=== PATIENT | female | born 1985 | race Two or more races ===

== ENCOUNTER 2025-06-12 11:56 | Outpatient (REF) | payer SELFPAY ==
--- OUTSIDE RECORDS SUMMARY | 2025-06-12 10:30 | XMS_ITS | Encounter Summary ---
Author Organization [employer] Address [address] [place] [address] [address] [place] [address] Care Team Providers Care Lead Software Qa Engineer Name Role Phone Mariela Villarreal Primary Care Provider [phone] Reason for Referral * Imaging (Routine) - Authorized Specialty Diagnoses / Procedures Referred By Justina alvarenga Referred To Contact Radiology Diagnoses Well adult exam Procedures BI Mammogram Screening Tomosynthesis Bilateral Mariela Villarreal FNP [address] [place] [address] Phone: tel: fax: [address] Phone: tel: fax: Referral ID Status Reason Start Date Expiration Date V isits Requested Visits Authorized [id number] Authorized 06/12/2025 06/12/2026 1 1 * PFT (Routine) - Authorized Specialty Diagnoses / Procedures Referred By Justina alvarenga Referred To Contact Diagnoses Moderate persistent asthma without complication Procedures Pulmonary Function Test Mariela Villarreal FNP [address] [place] [address] Phone: tel: fax: [address] Phone: tel: fax: Referral ID Status Reason Start Date Expiration Date V isits Requested Visits Authorized [id number] Authorized 06/12/2025 06/12/2026 1 1 * Consultation (Routine) - Pending Review Specialty Diagnoses / Procedures Referred By Justina alvarenga Referred To Contact Pulmonary Disease Diagnoses Moderate persistent asthma without complication Mariela Villarreal FNP [address] [place] [address] Phone: tel: fax: Referral ID Status Reason Start Date Expiration Date Visits Requested Visits Authorized [id number] Pending Review Specialty Services Required 06/12/2026 1 1 Reason for Visit * Reason Comments New patient Encounter Details Date Type Department Care Team ([facility] st Contact Info) Description 06/12/2025 10:30 AM EST Office Visit [facility] [address] [place] [address] Mariela Villarreal FNP [address] [place] [address] Well adult exam (Primary Dx); Moderate persistent asthma without complication; Migraine without aura and without status migrainosus, not intractable; Elevated BP without diagnosis of hypertension; Seafood allergy; Anxiety and depression; Class 1 obesity Social History Tobacco Use Types Packs/Day Years Used Date Smoking Tobacco: Former Cigarettes 0.2 18.8 0 08/02/2000 - 06/02/2019 Smokeless Tobacco: Never Depression Answer Date Recorded Patient Health Questionnaire-9 Score 5 06/12/2025 Patient Health Questionnaire-9 Score 5 06/12/2025 Last PHQ-9: Questionnaire Data Not on file 1 08/12/2024 Housing Stability Answer Date Recorded What is your housing situation today? I have jorge muhammad 06/05/[address] you li ve. Do you have problems with any of the following? None of the above 06/05/2025 Food Insecurity Answer Date Recorded Within the past 12 months, y ou worried that your food would run out before you got money to buy more: Never True 06/05/2025 Within the past 12 months,th e food you bought just didn't last and you didn't have enough money to get more: Never True 10/2024 Transportation Answer Date Recorded In the past 12 months, has l ack of transportation kept you from medical appts, meetings, work or from getting things needed for daily living? No 06/05/2025 Utilities Answer Date Recorded In the past 12 months, has t he electric, gas, oil or water company threatened to shut off services in your home? No 06/05/2025 Depression Answer Date Recorded Patient Health Questionnaire-2 Score 2 06/12/2025 Internet Access Answer Date Recorded Internet Access Q1 Yes 06/05/2025 Internet Access Q2 Not on file 06/05/2025 Comments Unknown Sex and Gender Information Value Date Recorded Sex Assigned at Female 03/16/2024 9:19 AM EDT Legal Sex Female 10:26 AM EDT Gender Identity Female 03/16/2024 9:19 AM EDT Sexual Orientation Straight 03/16/2024 9: 19 AM EDT documented as of this encounter Last Filed Vital Signs Vital Sign Reading Time Taken Comments Blood Pressure 130/90 06/12/2025 10:21 AM EST Pulse 97 06/12/2025 10:21 AM EST Temperature 36.9 C (98.4 F) 06/12/2025 10:21 AM EST Respiratory Rate 23 06/12/2025 10:21 AM EST Oxygen Saturation 97% 06/12/2025 10:21 AM EST Inhaled Oxygen Concentration - - Weight 87.6 kg (193 lb 3.2 oz) 06/12/2025 10:21 AM EST Height 165.1 cm (5' 5 ) 06/12/2025 10:21 AM EST Body Mass Index 32.15 06/12/2025 10:21 AM EST documented in this encounter Functional Status * Over the past 2 weeks, how often have you been bothered by any of the following problems? Question Answer Date of Assessment Author Patient Health Questionnaire -2 Score 2 06/12/2025 11:45 AM EST Nella Garcia MA * Little interest or pleasure in doing things Answer Date of Assessment Author Several days 06/12/2025 11:45 AM EST Nella Garcia MA * Feeling down, depressed, or hopeless Answer Date of Assessment Author Several days 06/12/2025 11:45 AM Nella Healy [place] * Trouble falling or staying asleep, or sleeping too much Answer Date of Assessment Author Not at all 06/12/2025 11:45 AM Nella Healy MA * Feeling tired or having little energy Answer Date of Assessment Author Several days 06/12/2025 11:45 AM Nella Healy MA * Poor appetite or overeating Answer Date of Assessment Author Several days 06/12/2025 11:45 AM Nella Healy [place] * Feeling bad about yourself - or that you are a failure or have let yourself or your family down Answer Date of Assessment Author Several days 06/12/2025 11:45 AM Nella Healy MA * Trouble concentrating on things, such as reading the newspaper or watching television Answer Date of Assessment Author Not at all 06/12/2025 11:45 AM Nella Healy MA * Moving or speaking so slowly that other people could have noticed? Or the opposite - being so fidgety or restless that you have been moving around a lot more than usual. Answer Date of Assessment Author Not at all 06/12/2025 11:45 AM Nella Healy MA * Thoughts that you would be better off or hurting yourself in some way Answer Date of Assessment Author Not at all 06/12/2025 11:45 AM Nella Healy MA * Patient Health Questionnaire-9 Score Answer Date of Assessment Author 5 06/12/2025 11:45 AM Nella Healy MA * How difficult have these problems made it for you to do your work, take care of things at home, or get along with other people? Answer Date of Assessment Author Not difficult at all 06/12/2025 11:45 AM Nella Montana MA * Over the last 2 weeks, how often have you been bothered by any of the following problems? Question Answer Date of Assessment Author Feeling nervous, anxious, or on edge 1 06/12/2025 11:46 AM Nella Healy MA Not being able to stop or co ntrol worrying 0 06/12/2025 11:46 AM Nella Healy MA Worrying too much about diff erent things 1 06/12/2025 11:46 AM Nella Healy MA Trouble relaxing 2 06/12/2025 11:46 AM Nella Healy MA Being so restless that it is hard to sit still 0 06/12/2025 11:46 AM Nella Healy MA Becoming easily annoyed or irritable 2 06/12/2025 11:46 AM Nella Healy MA Feeling afraid as if somethi ng awful might happen 1 06/12/2025 11:46 AM Nella Healy MA DEREK-7 Total Score 7 06/12/2025 11:46 AM Nella Healy MA documented as of this encounter Progress Notes * SABINE Ramírez - 06/12/2025 10:30 AM EST Subjective: Justa Gallardo is a 40 y.o. female who presents to the office for a new patient visit. 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) - Reports asthma worsened, quit smoking in 2019; required steroids at that time - Denies current smoking; quit in 2019 after smoking approximately 3 cigarettes per day Migraines - History of migraines, with onset of symptoms described as pain starting in the back of the head and moving into the eye - Reports nausea and inability to function during migraine episodes; requires dark environment - Uses Tylenol extra strength and sumatriptan (Imitrex) for severe episodes; sometimes Tylenol is ineffective - Reports migraine frequency increases around menstrual periods ( period migraine ) - Identifies triggers including hunger and strong smells - Reports limited access to sumatriptan, receives pills from a friend due to lack of prescription - No prior maintenance migraine therapy Seafood Allergy - History of allergic reactions to shellfish and shellfish protein-containing products - First episode at age 18, second episode at age 20, with symptoms of itchy throat, tongue swelling, and difficulty breathing - Required emergency room visit; symptoms resolved spontaneously - Avoids all seafood since second reaction - Never received an EpiPen Allergic Rhinitis - Reports suffering from allergic rhinitis all the time - Uses loratadine (Claritin) daily - Symptoms worsening each year Anxiety - Reports elevated anxiety level, described as everyday stress related to work and parenting - Denies suicidal thoughts Current concerns: Problem List[1] Surgical History[2] Family History[3] Social History Living situation: Lives in an apartment with daughter Safety:No fire arms in the home. Working smoke and fire alarm. Reports home and environment safe Employment/Education: Diet/exercise: Eats variety of food including fruits and vegetables. No routine exercise Substance use: Denies use Sexual preference: Male Sexual activity: No Dental:Home dental Vision: Refer to vision Last menstrual period: May 27, 2025 First menses at age 13-14 yrs old. Reports migraines associated with menstrual periods Children: 1 Vaginal Mammogram: Referral to radiology Mental health: Denies SI, harming self or others Allergies[4] Current Medications[5] Health Maintenance Topic Date Due HIV Screening Never done Family Planning (PISQ) Never done HPV Vaccines (1 - 3-dose series) Never done Hepatitis C Screening Never done Hepatitis B Vaccines (1 of 3 - 19+ 3-dose series) Never done Cervical Cancer Screening Never done Pneumococcal Vaccine: Pediatrics (0 to 5 Years) and At-Risk Patients (6 to 49) Years (2 of 2 - PCV)12/19/2021 Mammogram Never done Influenza Vaccine (1) Never done COVID-19 Vaccine (3 - 2024- season) 2025 Depression Screening 06/12/2026 Tobacco Screening 06/12/2026 SDOH Screening 06/12/2026 Alcohol/Substance Use Screening 06/12/2026 Disability Screening 06/12/2026 DTaP/Tdap/Td Vaccines (4 - Td or Tdap) 02/01/2029 Zoster Vaccines (1 of 2) 2033 RSV Patients and Patients Aged 60 years or older (1 - 1-dose 75+ series) 2058 RSV under 20 months Aged Out HIB Vaccines Aged Out IPV Vaccines Aged Out Hepatitis A Vaccines Aged Out Meningococcal Vaccine Aged Out Rotavirus Vaccines Aged Out Meningococcal B Vaccine Aged Out Review of Systems Constitutional: Negative for activity change, appetite change, fatigue and fever. HENT: Negative for congestion, ear discharge, ear pain, rhinorrhea and sore throat. Eyes: Negative for discharge, redness and itching. Respiratory: Negative for cough, shortness of breath and wheezing. Cardiovascular: Negative for chest pain. Gastrointestinal: Negative for abdominal pain, blood in stool, constipation, diarrhea, nausea and vomiting. Endocrine: Negative for polydipsia and polyuria. Genitourinary: Negative for decreased urine volume, difficulty urinating, dyspareunia, hematuria and menstrual problem. Musculoskeletal: Negative for arthralgias, gait problem and joint swelling. Skin: Negative for rash. Allergic/Immunologic: Negative for food allergies. Neurological: Negative for dizziness, weakness and headaches. Hematological: Does not bruise/bleed easily. Psychiatric/Behavioral: Negative for behavioral problems, sleep disturbance and suicidal ideas. Vitals: 06/12/25 1021 BP: (!) 130/90 BP Location: Left arm Patient Position: Sitting BP Cuff Size: Large adult Pulse: 97 Resp: 23 Temp: 98.4 ??F (36.9 ??C) TempSrc: Oral SpO2: 97% Weight: 193 lb 3.2 oz (87.6 kg) Height: 5' 5 (1.651 m) DEREK-7 Total Score: 7 (06/12/2025 11:46 AM) Patient Health Questionnaire-9 Score: 5 (06/12/2025 11:45 AM) Physical Exam Constitutional: Appearance: Normal appearance. HENT: Head: Normocephalic and atraumatic. Right Ear: Tympanic membrane, ear canal and external ear normal. Left Ear: Tympanic membrane, ear canal and external ear normal. Nose: Nose normal. No congestion. Mouth/Throat: Mouth: Mucous membranes are moist. Pharynx: Oropharynx is clear. Eyes: Extraocular Movements: Extraocular movements intact. Pupils: Pupils are equal, round, and reactive to light. Cardiovascular: Rate and Rhythm: Normal rate and regular rhythm. Pulses: Normal pulses. Heart sounds: Normal heart sounds. No murmur heard. Pulmonary: Effort: Pulmonary effort is normal. Breath sounds: Normal breath sounds. No wheezing. Chest: Chest wall: No tenderness. Abdominal: General: Abdomen is flat. Bowel sounds are normal. Palpations: Abdomen is soft. Tenderness: There is no guarding or rebound. Musculoskeletal: General: Normal range of motion. Cervical back: Normal range of motion. Right lower leg: No edema. Left lower leg: No edema. Skin: General: Skin is warm and dry. Capillary Refill: Capillary refill takes less than 2 seconds. Findings: No bruising. Neurological: General: No focal deficit present. Mental Status: She is alert and oriented to person, place, and time. Cranial Nerves: No cranial nerve deficit. Sensory: No sensory deficit. Psychiatric: Mood and Affect: Mood normal. Behavior: Behavior normal. Thought Content: Thought content normal. Judgment: Judgment normal. Problem List Items Addressed This Visit Visit Diagnoses Migraines - Migraine managed with abortive therapy (Imitrex/sumatriptan). Periodic migraines associated with menstrual cycle. Need to assess frequency and triggers to determine if maintenance therapy is indicated. - Prescribed Imitrex (sumatriptan) with quantity limit of 9 tablets per month, 2 refills. Prescribed naproxen for use during menstrual periods, with instructions to take twice daily with food. Advised to use Tylenol 1000 mg as adjunct for headache management. Instructed to keep a migraine diary for6 weeks to track frequency, triggers, and response to therapy. Scheduled follow-up in 6 weeks to review diary and reassess need for maintenance therapy. Relevant Medications naproxen (Naprosyn) 500 MG tablet SUMAtriptan (Imitrex) 100 MG tablet Moderate persistent asthma - Asthma is not well controlled, with frequent use of albuterol inhaler and persistent symptoms exacerbated by environmental exposures. - Renewed albuterol inhaler prescription. Prescribed nebulizer solution for home therapy. Prescribed Symbicort inhaler. - Patient with history of tobacco smoking. Referred for pulmonary function test to rule out COPD orother fixed obstruction - Referred to ceo and co founder for further management. Relevant Medications albuterol (Ventolin HFA) 108 (90 Base) MCG/ACT inhaler budesonide-formoterol (Symbicort) 160-4.5 MCG/ACT inhaler albuterol (2.5 MG/3ML) 0.083% nebulizer solution Other Relevant Orders Referral to Pulmonology Pulmonary Function Test Seafood allergy - Seafood allergy with history of oropharyngeal pruritus, tongue swelling, and dyspnea after ingestion. - Prescribed EpiPen for emergency use. Advised to citrus picker at the pharmacy. Relevant Medications EPINEPHrine (Epipen) 0.3 MG/0.3ML injection syringe Well adult exam - Primary Well nourished, alert and cooperative , good historian, and answering questions appropriately Order comprehensive blood work to include thyroid function tests, complete blood count (CBC), sexually transmitted infection (STI) panel, lipid panel, and hemoglobin A1c to assess cholesterol levels and diabetes status. No family hx of colon CA, colonoscopy / stool based tests deferred to 45 yrs Diet and exercise review Hep B lab work to determine presence of antigens or antibody Lifestyle and behavioral health assessment Patient education on vaccination and importance getting annual vaccines Pap smear and mammogram scheduled Follow up for pap smear in 2-4 weeks Relevant Orders Comprehensive Metabolic Panel Hepatitis B Core Antibody, Total TSH Hepatitis B Surface Antibody, Qualitative Hepatitis B surface antigen, EIA Hepatitis C Antibody with Reflex to HCV, RNA, Quantitative, Real-Time PCR CBC auto differential HIV-1/2 Antigen and Antibodies, Fourth Generation, with Reflexes Lipid Panel, Standard Hemoglobin A1c Chlamydia/N. Gonorrhoeae, PCR, Urine BI Mammogram Screening Tomosynthesis Bilateral Elevated BP without diagnosis of hypertension Pressure will be rechecked at next visit. Anxiety and Depression - Elevated anxiety and depression screen. Patient attributed to daily stressors. Offered therapy, declined current need for therapy, but further discussion planned. - Plan to discuss anxiety and possible referral to therapist at next visit. Class 1 obesity Dietary counseling Exercise counseling Eat healthy and focus on healthyfood choices daily fruits, vegetables, grains, low fat milk, low carbohydrate and fat Maintain healthy weight as this will lower your risk for many health problems. This note was drafted using [employer] ([employer]) technology. The patient/patient's guardian has been informed and has consented to the use of this technology: Yes [1] Patient Active Problem List Diagnosis Allergic rhinitis Class 1 obesity Genital HSV Migraines Moderate persistent asthma Seafood allergy [2] History reviewed. No pertinent surgical history. [3] Family History Problem Relation Name Age of Onset Asthma Mother Hypertension Mother Diabetes Mother Diabetes Father Hypertension Father [4] Allergies Allergen Reactions Shellfish Allergy Anaphylaxis Other Reaction(s): Swelling of throat 16-MAY-2016 01:07:16<$> Shellfish Protein-Containing Drug Products [5] Current Outpatient Medications Medication Sig Dispense Refill albuterol (2.5 MG/3ML) 0.083% nebulizer solution Take 3 mL (2.5 mg) by nebulization every 4 (four) hours if needed for wheezing. 75 mL 3 albuterol (Ventolin HFA) 108 (90 Base) MCG/ACT inhaler Inhale 2 puffs every 6 (six) hours if neededfor wheezing or shortness of breath. 18 g 11 budesonide-formoterol (Symbicort) 160-4.5 MCG/ACT inhaler Inhale 2 puffs in the morning and at bedtime. Rinse mouth with water after use to reduce aftertaste and incidence of candidiasis. Do not swallow. 10.2 g 11 EPINEPHrine (Epipen) 0.3 MG/0.3ML injection syringe Inject 0.3 mL (0.3 mg) as directed 1 (one) timefor 1 dose. use as directed for allergic reaction and then call 911 0.3 mL 0 loratadine (Claritin) 10 MG tablet TAKE 1 TABLET BY MOUTH ONCE PER DAY. 90 tablet 0 naproxen (Naprosyn) 500 MG tablet Take 1 tablet twice daily with food twice daily as needed 60 tablet 0 SUMAtriptan (Imitrex) 100 MG tablet Take 1 tablet (100 mg) by mouth 1 (one) time if needed for migraine. 9 tablet 2 Current Facility-Administered Medications Medication Dose Route Frequency Provider Last Rate Last Admin albuterol (2.5 MG/3ML) 0.083% nebulizer solution 2.5 mg 2.5 mg Nebulization Once Suleman Quinn MD documented in this encounter Plan of Treatment Upcoming Encounters Date Type Department Care Team (Late st Contact Info) Description 07/23/2025 10:00 AM EST Office Visit [facility] [address] [place] [address] Mariela Villarreal FNP [address] [place] [address] Scheduled Orders Name Type Priority Associated Diagnoses Orde r Schedule Comprehensive Metabolic Panel Lab Routine Well adult exam Expected: 06/12/2025 (Approximate), Expires: 06/08/2026 Hepatitis B Core Antibody, Total Lab Routine Well adult exam Expected: 06/12/2025 (Approximate), Expires: 06/08/2026 TSH Lab Routine Well adult exam Expected: 06/12/2025 (Approximate), Expires: 06/08/2026 Hepatitis B Surface Antibody, Qualitative Lab Routine Well adult exam Expected: 06/12/2025 (Approximate), Expires: 06/08/2026 Hepatitis B surface antigen, EIA Lab Routine Well adult exam Expected: 06/12/2025 (Approximate), Expires: 06/08/2026 Hepatitis C Antibody with Reflex to HCV, RNA, Quantitative, Real-Time PCR Lab Routine Well adult exam Expected: 06/12/2025, Expires: 06/08/2026 HIV-1/2 Antigen and Antibodies, Fourth Generation, with Reflexes Lab Routine Well adult exam Expected: 06/12/2025 (Approximate), Expires: 06/08/2026 Lipid Panel, Standard Lab Routine Well adult exam Expected: 06/12/2025 (Approximate), Expires: 06/08/2026 Hemoglobin A1c Lab Routine Well adult exam Expected: 06/12/2025 (Approximate), Expires: 06/08/2026 Chlamydia/N. Gonorrhoeae, PCR, Urine Lab Routine Well adult exam Ordered: 06/12/2025 Pulmonary Function Test PFT Routine Moderate persistent asthma without complication Expected: 06/12/2025, Expires: 12/10/2025 BI Mammogram Screening Tomosynthesis Bilateral Imaging Routine Well adult exam Expected: 06/12/2025, Expires: 08/12/2026 Scheduled Referrals Name Type Priority Associated Diagnoses Orde r Schedule Referral to Pulmonology Outpatient Referral Routine Moderate persistent asthma without complication Expected: 06/12/2025 (Approximate), Expires: 06/12/2026 documented as of this encounter Procedures Procedure Name Priority Date/Time Associated Diagnosis Comments CBC WITH AUTO DIFFERENTIAL Routine 06/12/2025 12:06 PM EST Well adult exam documented in this encounter Results * (ABNORMAL) CBC auto differential (06/12/2025 12:06 PM EST) White Blood Count 12.2(H) 4.8 - 10.8 X10*3/uL [facility] Red Blood Count 4.79 4.20 - 5.50 X10*6/uL [facility] Hemoglobin 12.6 12.0 - 16.0 g/dl [facility] Hematocrit 40.9 37.0 - 47.0 % [facility] Mean Corpuscular Volume 85.4 80.0 - 98.0 fL [facility] Mean Corpuscular Hemoglobin 26.3(L) 27.0 - 33.0 pg [facility] Mean Corpuscular HGB Conc 30.8(L) 31.0 - 35.0 g/dl [facility] Red Cell Distribution Width 12.8 11.0 - 16.0 % [facility] Platelet Count 423(H) 160 - 400 X10*3/uL [facility] Mean Platelet Volume 9.4 9.4 - 12.3 fL [facility] Neutrophils Percent Auto 64.0 45 - 73 % [facility] Imm Gran Pct Auto 0.7(H) 0.0 - 0.4 % [facility] Lymphocytes Percent Auto 25.2 20 - 40 % [facility] Monocytes Percent Auto 5.2 2 - 11 % [facility] Eosinophils Percent Auto 3.9 0 - 4 % [facility] Basophils Percent Auto 1.0 0 - 2 % [facility] NRBC Pct Auto 0.0 0.0 - 0.2 /100WBC [facility] Neutrophils Absolute Auto 7.8 2.0 - 8.3 x10*3/uL [facility] Imm Gran Abs Auto 0.09(H) 0.00 - 0.03 X10*3/uL [facility] Lymphocytes Absolute Auto 3.1 1.2 - 4.9 X10*3/uL [facility] Monocytes Absolute Auto 0.6 0.1 - 1.2 X10*3/uL [facility] Eosinophils Absolute Auto 0.5(H) 0.0 - 0.4 X10*3/uL [facility] Basophils Absolute Auto 0.1 0.0 - 0.2 X10*3/uL [facility] NRBC Abs Auto 0.000 0.0 - 0.012 X10*3/uL [facility] Blood Venous blood specimen / Unknown 06/12/2025 12:06 PM EST 06/12/2025 1:34 PM EST Mariela REGALADO LAB BLOOD ORDERABLES Final Res ult [facility] [address] [place] [address] [phone] documented in this encounter Visit Diagnoses Diagnosis Well adult exam- Primary Routine general medical examination at a health care facility Moderate persistent asthma without complication Migraine without aura and without status migrainosus, not intractable Elevated BP without diagnosis of hypertension Seafood allergy Allergy to seafood Anxiety and depression Class 1 obesity documented in this encounter Additional Health Concerns Assessment Noted Time PHQ-9 Depression Total Score: 5 06/12/20 11:45 AM EST documented as of this encounter Care Teams Lead Software Qa Engineer Relationship Specialty Start Date End Date Mariela Villarreal FNP [address] [place] [phone] PCP - General Family Medicine 06/11/25 documented as of this encounter
[2025-06-12 13:45] LABS: MANUAL DIFF FLAG NO
[2025-06-12 13:53] LABS: Hematocrit 40.9 % (37.0-47.0); Hemoglobin 12.6 g/dl (12.0-16.0); Imm Gran Abs Auto 0.09 X10*3/uL (0.00-0.03); Imm Gran Pct Auto 0.7 % (0.0-0.4); Lymphocytes Absolute Auto 3.1 X10*3/uL (1.2-4.9); Mean Corpuscular HGB Conc 30.8 g/dl (31.0-35.0); Mean Corpuscular Hemoglobin 26.3 pg (27.0-33.0); Mean Corpuscular Volume 85.4 fL (80.0-98.0); NRBC Abs Auto 0.000 X10*3/uL (0.0-0.012); NRBC Pct Auto 0.0 /100WBC (0.0-0.2); Platelet Count 423 X10*3/uL (160-400); Red Blood Count 4.79 X10*6/uL (4.20-5.50); White Blood Count 12.2 X10*3/uL (4.8-10.8)
--- OUTSIDE RECORDS SUMMARY | 2025-06-12 14:00 | XMS_ITS | Encounter Summary ---
Author Organization [employer] Address [address] [place] [address] 7[address] [place] [address] Care Team Providers Care Floral Design Teacher Name Role Phone Mariela Villarreal Primary Care Provider [phone] Reason for Visit * Reason Comments Med Refill Encounter Details Date Type Department Care Team (Late Contact Info) Description 07/31/2024 Refill [facility] [address] [place] [address] [phone] Suleman Quinn MD [address] [place] [phone] Non-seasonal allergic rhinitis, unspecified trigger; Moderate persistent asthma without complication Social History Tobacco Use Types Packs/Day Years Used Date Smoking Tobacco: Former Cigarettes 0.2 18.8 0 08/02/2000 - 06/02/2019 Smokeless Tobacco: Never Comments Unknown Sex and Gender Information Value Date Recorded Sex Assigned at Female 03/16/2024 9:19 AM EDT Legal Sex Female 10:26 AM EDT Gender Identity Female 03/16/2024 9:19 AM EDT Sexual Orientation Straight 03/16/2024 9: 19 AM EDT documented as of this encounter Plan of Treatment Upcoming Encounters Date Type Department Care Team (Late st Contact Info) Description 07/23/2025 10:00 AM EST Office Visit [facility] [address] [place] [address] Mariela Villarreal FNP [address] [place] [address] documented as of this encounter Visit Diagnoses Diagnosis Non-seasonal allergic rhinitis, unspecified trigger Moderate persistent asthma without complication documented in this encounter Care Teams Floral Design Teacher Relationship Specialty Start Date End Date Mariela Villarreal FNP [address] [place] [address] PCP - General Family Medicine 06/11/25 documented as of this encounter
--- OUTSIDE RECORDS SUMMARY | 2025-06-12 14:00 | XMS_ITS | Clinical Summary ---
Author Organization [employer] Address [address] [place] [address] 7t [place] [address] Care Team Providers Care Reiki Practitioner Name Role Phone Mariela Villarreal STUDENT DEAN Primary Care Provider [phone] Allergies Active Allergy Reactions Criticality Noted Date Comments Shellfish Allergy Anaphylaxis High 03/16/2024 Other Reaction(s): Swelling of throat 16-MAY-2016 01:07:16<$> Shellfish Protein-Containing Drug Products 03/16/2024 Medications loratadine (Claritin) 10 MG tabletIndicatio ns:Non-seasonal allergic rhinitis, unspecified trigger TAKE 1 TABLET BY MOUTH ONCE PER DAY. 90 tablet 025 Active EPINEPHrine (Epipen) 0.3 MG/0.3ML injection syringeIndicati ons:Seafood allergy Inject 0.3 mL (0.3 mg) as directed 1 (one) time for 1 dose. use as directed for allergic reaction and then call 911 0.3 mL 025 Active albuterol (Ventolin HFA) 108 (90 Base) MCG/ACT inhalerIndicati ons:Moderate persistent asthma without complication Inhale 2 puffs every 6 (six) hours if needed for wheezing or shortness of breath. 18 g 025 2025 Active budesonide-form oterol (Symbicort) 160-4.5 MCG/ACT inhalerIndicati ons:Moderate persistent asthma without complication Inhale 2 puffs in the morning and at bedtime. Rinse mouth with water after use to reduce aftertaste and incidence of candidiasis. Do not swallow. 10.2 g 025 11/11/ 2026 Active naproxen (Naprosyn) 500 MG tabletIndicatio ns:Migraine without aura and without status migrainosus, not intractable Take 1 tablet twice daily with food twice daily as needed 60 tablet Active SUMAtriptan (Imitrex) 100 MG tabletIndicatio ns:Migraine without aura and without status migrainosus, not intractable Take 1 tablet (100 mg) by mouth 1 (one) time if needed for migraine. 9 tablet 2 025 2024 Active albuterol (2.5 MG/3ML) 0.083% nebulizer solutionIndicat ions:Moderate persistent asthma without complication Take 3 mL (2.5 mg) by nebulization every 4 (four) hours if needed for wheezing. 75 mL 3 025 2025 Active Ventolin HFA 108 (90 Base) MCG/ACT inhalerIndicati ons:Moderate persistent asthma without complication INHALE 2 PUFFS EVERY 6 HOURS IF NEEDED FOR WHEEZING. 18 g 025 2024 Discontinued(R eorder (will not trigger notification to Pharmacy)) Symbicort 160-4.5 MCG/ACT inhalerIndicati ons:Moderate persistent asthma without complication INHALE 2 PUFFS IN THE MORNING AND AT BEDTIME. RINSE MOUTH WITH WATER AFTER USE. DO NOT SWALLOW. 10.2 each 025 2024 Discontinued(R eorder (will not trigger notification to Pharmacy)) SUMAtriptan (Imitrex) 100 MG tabletIndicatio ns:Migraine without aura and without status migrainosus, not intractable Take 1 tablet (100 mg) by mouth 1 (one) time if needed for migraine. 9 tablet 2 025 2024 Discontinued(R eorder (will not trigger notification to Pharmacy)) budesonide-form oterol (Symbicort) 160-4.5 MCG/ACT inhalerIndicati ons:Moderate persistent asthma without complication Inhale 2 puffs in the morning and at bedtime. Rinse mouth with water after use to reduce aftertaste and incidence of candidiasis. Do not swallow. 10.2 g 11 025 2024 Discontinued(R eorder (will not trigger notification to Pharmacy)) albuterol (Ventolin HFA) 108 (90 Base) MCG/ACT inhalerIndicati ons:Moderate persistent asthma without complication Inhale 2 puffs every 6 (six) hours if needed for wheezing or shortness of breath. 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 Migraines 03/16/2024 Moderate persistent asthma 03/16/2024 Seafood allergy 03/16/2024 Encounters Date Type Department Care Team Description 06/12/2025 10:30 AM EST Office Visit [facility] [address] [place] [address] [phone] Mariela Villarreal FNP Well adult exam (Primary Dx); Moderate persistent asthma without complication; Migraine without aura and without status migrainosus, not intractable; Elevated BP without diagnosis of hypertension; Seafood allergy; Anxiety and depression; Class 1 obesity 06/12/2025 Travel 06/11/2025 Telephone [facility] [address] [place] [address] Mariela Villarreal FNP Chart Prep 06/05/2025 Patient Outreach [facility] [address] [place], [place] [phone] Mariela Villarreal FNP Pre-visit Planning (SDOH negative, Tobacco screening negative. ) 05/21/2025 6:40 PM EDT Office Visit [facility] [address] [place] [address] Suleman Quinn MD Moderate persistent asthma without complication (Primary Dx) 05/21/2025 Travel 04/30/2025 Telephone [facility] [address] [place] [address] Terry Lobato MD 04/17/2025 Telephone [facility] [address] [place], [place] [phone] Terry Lobato MD [facility] - New Patient Assistance 04/03/2025 Refill [facility] [address] [place], [place] [phone] Hannah Tao MD Moderate persistent asthma without complication from Last 3 Months Family History Medical History Relation Name Comments Diabetes Father Hypertension Father Asthma Mother Diabetes Mother Hypertension Mother Relation Name Status Comments Father Mother Social History Tobacco Use Types Packs/Day Years Used Date Smoking Tobacco: Former Cigarettes 0.2 18.8 0 08/02/2000 - 06/02/2019 Smokeless Tobacco: Never Tobacco Cessation:Counseling Given: Yes Depression Answer Date Recorded Patient Health Questionnaire-9 [...] Orientation Straight 03/16/2024 9: 19 AM EDT Last Filed Vital Signs Vital Sign Reading [...] Mass Index 32.15 06/12/2025 10:21 AM EST Plan of Treatment Upcoming Encounters Date Type Department Care Team (Late st Contact Info) Description 07/23/2025 10:00 AM EST Office Visit [facility] [address] [place] [address] Mariela Villarreal, STUDENT DEAN [address] [place] [address] Health Maintenance Due Date Last Done Comments HIV Screening 1983 Family Planning (PISQ) 1998 HPV Vaccines (1 - 3-dose series) 1998 Hepatitis C Screening 2001 Hepatitis B Vaccines (1 of 3 - 19+ 3-dose series) 2002 Pap Smear 2004 Cervical Cancer Screening 2013 HPV/Cotest 2013 Pneumococcal Vaccine: Pediatrics (0 to 5 Years) and At-Risk Patients (6 to 49) Years (2 of 2 - PCV) 12/19/2021 12/19/2020 Mammogram 2023 COVID-19 Vaccine (3 - 2024-2 6 season) 2025 06/16/2021, 05/25/2021 Influenza Vaccine (#1) 2025 Alcohol/Substance Use Screening 06/12/2026 06/12/2025 Depression Screening 06/12/2026 06/12/2025, 06/12/2025 Disability Screening 06/12/2026 06/12/2025 SDOH Screening 06/12/2026 06/12/2025 Tobacco Screening 06/12/2026 06/12/2025 DTaP/Tdap/Td Vaccines (4 - T d or Tdap) 02/01/2029 02/01/2019, 05/15/2015, 04/02/2015 Zoster Vaccines (1 of 2) 2033 RSV Patients and Patients Aged 60 years or older (1 - 1-dose 75+ series) 2058 HIB Vaccines Aged Out No longer eligi ble based on patient's age to complete this topic Hepatitis A Vaccines Aged Out No long er eligible based on patient's age to complete this topic IPV Vaccines Aged Out No longer eligi ble based on patient's age to complete this topic Meningococcal B Vaccine Aged Out No l onger eligible based on patient's age to complete this topic Meningococcal Vaccine Aged Out No león ferny eligible based on patient's age to complete this topic RSV under 20 months Aged Out No longe r eligible based on patient's age to complete this topic Rotavirus Vaccines Aged Out No longer eligible based on patient's age to complete this topic Procedures Procedure Name Priority Date/Time Associated Diagnosis Comments HEMOGLOBIN A1C Routine 06/12/2025 12:06 PM EST Well adult exam CBC WITH AUTO DIFFERENTIAL Routine 06/12/2025 12:06 PM EST Well adult exam from Last 3 Months Results * (ABNORMAL) CBC auto differential (06/12/2025 12:06 PM EST) White Blood Count 12.2(H) 4.8 - 10.8 X10*3/uL [facility] Red Blood Count 4.79 4.20 - 5.50 X10*6/uL [facility] Hemoglobin 12.6 12.0 - 16.0 g/dl [facility] Hematocrit 40.9 37.0 - 47.0 % [facility] Mean Corpuscular Volume 85.4 80.0 - 98.0 fL [facility] Mean Corpuscular Hemoglobin 26.3(L) 27.0 - 33.0 pg [facility] Mean Corpuscular HGB Conc 30.8(L) 31.0 - 35.0 g/dl [facility] Red Cell Distribution Width 12.8 11.0 - 16.0 % [facility] Platelet Count 423(H) 160 - 400 X10*3/uL [facility] Mean Platelet Volume 9.4 9.4 - 12.3 fL [facility] Neutrophils Percent Auto 64.0 45 - 73 % [facility] Imm Gran Pct Auto 0.7(H) 0.0 - 0.4 % [facility] Lymphocytes Percent Auto 25.2 20 - 40 % [facility] Monocytes Percent Auto 5.2 2 - 11 % [facility] Eosinophils Percent Auto 3.9 0 - 4 % [facility] Basophils Percent Auto 1.0 0 - 2 % [facility] NRBC Pct Auto 0.0 0.0 - 0.2 /100WBC [facility] Neutrophils Absolute Auto 7.8 2.0 - 8.3 x10*3/uL [facility] Imm Gran Abs Auto 0.09(H) 0.00 - 0.03 X10*3/uL [facility] Lymphocytes Absolute Auto 3.1 1.2 - 4.9 X10*3/uL [facility] Monocytes Absolute Auto 0.6 0.1 - 1.2 X10*3/uL [facility] Eosinophils Absolute Auto 0.5(H) 0.0 - 0.4 X10*3/uL [facility] Basophils Absolute Auto 0.1 0.0 - 0.2 X10*3/uL [facility] NRBC Abs Auto 0.000 0.0 - 0.012 X10*3/uL [facility] Blood Venous blood specimen / Unknown 06/12/2025 12:06 PM EST 06/12/2025 1:34 PM EST us Mariela Cherelle STUDENT DEAN LAB BLOOD ORDERABLES Final Res ult [facility] [address] [place] [address] [phone] * Hemoglobin A1c (06/12/2025 12:06 PM EST) Hemoglobin A1c 5.1 <6.0 % [facility] Comment:Hemoglobin A1C Refer ence Range Adults: 4.8 - 6.0 % Non diabetic: < 6.0 % Goal: < 7.0 %Additional Action Suggested: > 8.0 %Note: Hemoglobin A1c results are invalid for patients with abnormal amounts of HbF. Blood transfusions may impact the HbA1c concentration in the patient sample. Estimated Average Glucose 100 mg/dL [facility] Comment:eAG = Estimated ave rage glucose which is %A1C expressed asaverage glucose, using the formula of the Y2K-MyxmbxtZajsctq Glucose study (ADAG), Diabetes Care, Vol.31,#8,Mar. 2007 Blood Venous blood specimen / Unknown 06/12/2025 12:06 PM EST 06/12/2025 1:34 PM EST us Mariela Villarreal STUDENT DEAN LAB BLOOD ORDERABLES Final Res ult [facility] [address] [place] [address] [phone] from Last 3 Months Insurance [facility] [id number] [place] [address] , [address] [place] [address] Care Teams Reiki Practitioner Relationship Specialty Start Date End Date Mariela Villarreal FNP [address] [place] [phone] PCP - General Family Medicine 06/11/25
--- OUTSIDE RECORDS SUMMARY | 2025-06-12 14:00 | XMS_ITS | Clinical Summary ---
Author Organization [facility] Address [address] [place] [address] Care Team Providers Care Munitions Worker Name Role Phone Zoey Powers PA-C Primary Care Provider [phone] Source Comments PLEASE NOTE, if this patient is a minor, it may be UNLAWFUL to discuss sensitive information that is contained in these records (such as FAMILY PLANNING, MENTAL HEALTH or SUBSTANCE ABUSE) with the minor patient's parent or other person without the patient's specific authorization.[facility] Allergies No known active allergies Medications loratadine (CLARITIN) 10 mg tabletIndications: Contact dermatitis Take 1 Tab by mouth once daily as needed for allergies. 30 Tab 4 5 Active albuterol sulfate hfa 90 mcg/actuation inhalerIndications :Intermittent asthma, uncomplicated Inhale 2 Puffs into the lungs every 4 (four) hours as needed for shortness of breath or wheezing. 1 Inhaler 1 6 Active norethindrone-ethi nyl estradiol (MICROGESTIN 08/21) 1-20 mg-mcg per tabletIndications: Dysmenorrhea Take 1 Tab by mouth once daily Take at the same time each day. 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 Allergic rhinitis due to allergen 09/26/2013 Cannabis abuse, continuous 09/26/2013 Tobacco abuse disorder Immunizations Immunization Administration Dates Next Due TDAP 04/02/2015 Family History Medical History Relation Name Comments Diabetes Father Heart Problems Father Hypertension Father Diabetes Mother Hypertension Mother Relation Name Status Comments Father Alive Mother Alive Social History Tobacco Use Types Packs/Day Years Used Date Smoking Tobacco: Every Day Cigarettes Smokeless Tobacco: Never Tobacco Cessation:Ready to Q uit: No; Counseling Given: Yes Comments:smoking about cig per day Alcohol Use Standard Drinks/Week Comments Yes 0 (1 standard drink = 0.6 oz pur e alcohol) OCCASIONAL wine Social Connections Answer Date Recorded Social Connections and Isolation 0 03/25/2019 Financial Resource Strain Answer Date R ecorded Financial Resource Strain 0 2018 Stress Answer Date Recorded Stress 0 03/25/2019 Physical Activity Answer Date Recorded Physical Activity 0 03/25/2019 Food Insecurity Answer Date Recorded Food 0 03/25/2019 Transportation Needs Answer Date Record ed Transportation 0 03/25/2019 Housing Stability Answer Date Recorded Housing 0 03/25/2019 Safety and Environment Answer Date Bhargav rded Safety 0 03/25/2019 Utilities Answer Date Recorded Utilities 0 03/25/2019 Employment Answer Date Recorded Employment 0 03/25/2019 Comments No Sex and Gender Information Value Date Recorded Sex Assigned at Not on file Legal Sex Female 11:36 AM PDT Gender Identity Not on file Sexual Orientation Not on file 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 Not on file Not on file Not on f ile Last Filed Vital Signs Vital Sign Reading Time Taken Comments Blood Pressure 100/79 03/17/2017 10:36 AM EDT Pulse 82 03/17/2017 10:36 AM EDT Temperature 36.8 C (98.2 F) 03/17/2017 10:36 AM EDT Respiratory Rate 16 03/17/2017 10:36 AM EDT Oxygen Saturation - - Inhaled Oxygen Concentration - - Weight 70.3 kg (155 lb) 03/17/2017 10:36 AM EDT Height 165.1 cm (5' 5 ) 03/17/2017 10:36 AM EDT Body Mass Index 25.79 03/17/2017 10:36 AM EDT Plan of Treatment Not on file Insurance [facility] Member Subscriber Plan / Payer (Ef fective 2016-Present) Name:Justa Gallardo Relation to Subscriber:Self Name:Justa Gallardo Payer ID:[id number] Group ID:Not on file Type:Medicaid Address: [facility] [id number] [id number] Care Teams Munitions Worker Relationship Specialty Start Date End Date Zoey Powers PA-C [address] [place] [address] PCP - General 09/27/18
--- OUTSIDE RECORDS SUMMARY | 2025-06-12 14:00 | XMS_ITS | Encounter Summary ---
Author Organization [employer] Address [address] [place] [address] [address]t [place] [address] Care Team Providers Care Configuration Management Consultant Name Role Phone Mariela Villarreal Primary Care Provider [phone] Reason for Visit * Reason Comments Med Refill Encounter Details Date Type Department Care Team (Late Contact Info) Description 04/03/2025 Refill [facility] [address] [place] [phone] Hannah Tao MD [address] [place] [address] Moderate persistent asthma without complication Social History [...] Description 07/23/2025 10:00 AM EST Office Visit [facility] [address] [place] [address] Mareila Villarreal FNP [address] [place] [address] documented as of this encounter Visit Diagnoses Diagnosis Moderate persistent asthma without complication documented in this encounter Care Teams Configuration Management Consultant Relationship Specialty Start Date End Date Mariela Villarreal FNP [address] [place] [address] PCP - General Family Medicine 06/11/25 documented as of this encounter
--- OUTSIDE RECORDS SUMMARY | 2025-06-12 14:00 | XMS_ITS | Encounter Summary ---
Author Organization [employer] Address [address] [facility] 7t [place] [address] Care Team Providers Care Patternmaker Apprentice Wood Name Role Phone Mariela Villarreal Primary Care Provider [phone] Reason for Visit * Reason Onset Date Comments Chart Prep 06/11/2025 Encounter Details Date Type Department Care Team ([facility] st Contact Info) Description 06/11/2025 Telephone [facility] [address] [place], [place] [phone] Mariela Villarreal FNP [address] [place] [address] Chart Prep Social History Tobacco Use Types Packs/Day Years [...] AM EDT documented as of this encounter Miscellaneous Notes * Telephone Encounter - Marissa Miguel [place] - 06/11/2025 9:59 AM EST Chart Prep Labs: not applicable Images: not applicable Referrals: not applicable Vaccines due: Covid, Flu, PCV20, Hep B, and HPV Screenings: mammogram, LMP, and HIV, Hep C, Cervical cancer. Overdue care gaps: SBIRT, PHQ-9, DEREK-7, Disability screen, and Tobacco documented in this encounter Plan of Treatment Upcoming Encounters Date Type Department Care Team (Late st Contact Info) Description 07/23/2025 10:00 AM EST Office Visit [facility] [address] [place] [address] Mariela Villarreal FNP [address] [place] [address] documented as of this encounter Visit Diagnoses Not on filedocumented in this encounter Care Teams Patternmaker Apprentice Wood Relationship Specialty Start Date End Date Mariela Villarreal FNP [address] [place] [address] PCP - General Family Medicine 06/11/25 documented as of this encounter
--- OUTSIDE RECORDS SUMMARY | 2025-06-12 14:00 | XMS_ITS | Encounter Summary ---
Author Organization [employer] Address [address] [place] [address] 7t [place] [address] Care Team Providers Care Orchard Hand Name Role Phone Mariela Villarreal Primary Care Provider [phone] Reason for Visit * Reason Comments Med Refill Encounter Details Date Type Department Care Team (Late Contact Info) Description 05/05/2024 Refill [facility] [address] [place] [address] Suleman Quinn MD [address] [place] [address] Non-seasonal allergic rhinitis, unspecified trigger Social History Tobacco Use Types Packs/Day Years [...] Description 07/23/2025 10:00 AM EST Office Visit [facility] [address] [place] [address] Mariela Villarreal FNP [address] [place] [address] documented as of this encounter Visit Diagnoses Diagnosis Non-seasonal allergic rhinitis, unspecified trigger documented in this encounter Care Teams Orchard Hand Relationship Specialty Start Date End Date Mariela Villarreal FNP [address] [place] [phone] PCP - General Family Medicine 06/11/25 documented as of this encounter
--- OUTSIDE RECORDS SUMMARY | 2025-06-12 14:00 | XMS_ITS | Encounter Summary ---
Author Organization [employer] Address [address] [place] [address] [address] [place] [address] Care Team Providers Care Section Chief Name Role Phone Mariela Villarreal Primary Care Provider [phone] Reason for Visit * Reason Comments Med Refill Encounter Details Date Type Department Care Team (Late st Contact Info) Description 02/04/2025 Refill [facility] [address] [place] [address] [phone] Hannah Tao MD [address] [place] [address] Non-seasonal allergic rhinitis, unspecified trigger Social History [...] Description 07/23/2025 10:00 AM EST Office Visit [facility] [address] [place] [address] Mariela Villarreal FNP [address] [place] [address] documented as of this encounter Visit Diagnoses Diagnosis Non-seasonal allergic rhinitis, unspecified trigger documented in this encounter Care Teams Section Chief Relationship Specialty Start Date End Date Mariela Villarreal FNP [address] [place] [address] PCP - General Family Medicine 06/11/25 documented as of this encounter
--- OUTSIDE RECORDS SUMMARY | 2025-06-12 14:00 | XMS_ITS | Encounter Summary ---
Author Organization [employer] Address [address] [place] [address] [address]t [place] [address] Care Team Providers Care Rags Laborer Name Role Phone Mariela Villarreal Primary Care Provider [phone] Reason for Visit * Reason Comments Med Refill Encounter Details Date Type Department Care Team (Late Contact Info) Description 06/15/2024 Refill [facility] [address] [place] [address] [phone] Suleman Quinn MD [address] [place] [address] Non-seasonal allergic rhinitis, unspecified trigger; Moderate persistent [...] Description 07/23/2025 10:00 AM EST Office Visit [facility] [address] [place] [address] Mariela Villarreal FNP [address] [place] [address] documented as of this encounter Visit Diagnoses Diagnosis Non-seasonal allergic rhinitis, unspecified trigger Moderate persistent asthma without complication documented in this encounter Care Teams Rags Laborer Relationship Specialty Start Date End Date Mariela Villarreal FNP [address] [place] [address] PCP - General Family Medicine 06/11/25 documented as of this encounter
--- OUTSIDE RECORDS SUMMARY | 2025-06-12 14:00 | XMS_ITS | Encounter Summary ---
Author Organization [employer] Address [address] [facility] 7t [place] [address] Care Team Providers Care Transformation Consultant Name Role Phone Mariela Villarreal Primary Care Provider [phone] Reason for Visit * Reason Comments Med Refill Encounter Details Date Type Department Care Team (Late st Contact Info) Description 10/31/2024 Refill [facility] [address] [place] [phone] Suleman Quinn MD [address] [place] [phone] Moderate persistent asthma without complication Social History [...] Description 07/23/2025 10:00 AM EST Office Visit [facility] [address] [place] [address] Mariela Villarreal FNP [address] [place] [address] documented as of this encounter Visit Diagnoses Diagnosis Moderate persistent asthma without complication documented in this encounter Care Teams Transformation Consultant Relationship Specialty Start Date End Date Mariela Villarreal FNP [address] [place] [address] PCP - General Family Medicine 06/11/25 documented as of this encounter
--- OUTSIDE RECORDS SUMMARY | 2025-06-12 14:00 | XMS_ITS | Encounter Summary ---
Author Organization [employer] Address [address] [facility] 7t [place] [address] Care Team Providers Care Application Support Consultant Name Role Phone Mariela Villarreal DEER FARMER Primary Care Provider [phone] Encounter Details Date Type Department Care Team (Latest Contact Info) Description 06/12/2025 Travel Social History Tobacco Use Types Packs/Day Years [...] AM EDT documented as of this encounter Functional Status * Over the past 2 weeks, how often have you been bothered by any of the following problems? Question Answer Date of Assessment Author Patient Health Questionnaire -2 Score 2 06/12/2025 11:45 AM Nella Healy MA * Little interest or pleasure in doing things Answer Date of Assessment Author Several days 06/12/2025 11:45 AM Nella Healy MA * Feeling down, depressed, or hopeless [...] Healy [place] documented as of this encounter Plan of Treatment Upcoming Encounters Date Type Department Care Team (Late st Contact Info) Description 07/23/2025 10:00 AM EST Office Visit [facility] [address] [place] [address] Mariela Villarreal FNP [address] [place] [address] documented as of this encounter Visit Diagnoses Not on filedocumented in this encounter Additional Health Concerns Assessment Noted Time PHQ-9 Depression Total Score: 5 06/12/20 11:45 AM EST documented as of this encounter Care Teams Application Support Consultant Relationship Specialty Start Date End Date Mariela Villarreal FNP [address] [place] [address] PCP - General Family Medicine 06/11/25 documented as of this encounter
[2025-06-12 14:16] LABS: Alanine Aminotransferase 21 U/L (0-31); Albumin Level 4.4 g/dL (3.5-5.0); Alkaline Phosphatase 60 U/L (39-117); Anion Gap 10 (12-20); Aspartate Amino Transferase 28 U/L (5-31); Blood Urea Nitrogen 12 mg/dL (9-16); Calcium 9.1 mg/dL (8.4-10.2); Carbon Dioxide 28 mmol/L (22-29); Chloride 104 mmol/L (96-108); Cholesterol 161 mg/dL (<200); Estimated Glomerular Filt Rate > 60; HDL Cholesterol 45 mg/dL (>40); Potassium 3.9 mmol/L (3.3-5.1); Sodium 138 mmol/L (135-145); Total Protein 7.4 g/dL (6.5-8.0); Triglycerides 91 mg/dL (<150)
[2025-06-12 14:26] LABS: CT PCR Urine NOT DETECTED (Not Detect.); NG PCR Urine NOT DETECTED (Not Detect.)
[2025-06-12 14:30] LABS: Thyroid Stimulating Hormone 1.57 uIU/mL (0.32-4.0)
[2025-06-13 04:20] LABS: HBS Num1 37.06 mIU/mL (0-7.99); HBc Num1 0.13 S/CO (0.00-0.79); HBsAGNum1 0.72 S/CO (0.00-0.99); HIV Num 1 0.05 S/CO (0.00-0.99); Hepatitis B Surface Antigen Negative (Negative); ~HepC Num1 0.10 S/CO (0.00-0.79); ~Hepatitis B Surface Antibody REACTIVE (Nonreactive); ~Hepatitis C Antibody Nonreactive (Nonreactive)
== END 2025-06-12 11:57 | disposition home or self-care (01) ==
LOC: HO.HHCL 11:56
PROVIDERS: PCP Nurse Practitioner Family; Visit Provider Nurse Practitioner Family
DX: Z11.4 Encounter for screening for human immunodeficiency virus [HIV] (principal); J45.40 Moderate persistent asthma, uncomplicated; Z20.6 Contact with and (suspected) exposure to human immunodeficiency virus [HIV]; Z13.6 Encounter for screening for cardiovascular disorders; Z13.1 Encounter for screening for diabetes mellitus; Z13.29 Encounter for screening for other suspected endocrine disorder
CPT/HCPCS: 80053; 80061; 83036; 84443; 85025; 86704; 86706; 86803; 87340; 87389; 87491; 87591

== ENCOUNTER 2025-07-16 18:31 | Outpatient (REF) | payer OTHER, SELFPAY ==
--- OUTSIDE RECORDS SUMMARY | 2025-07-16 14:45 | XMS_ITS | Encounter Summary ---
Author Organization [employer] Address [address] [place] [address] 7t [place] [address] Care Team Providers Care Bellmaker Name Role Phone Mariela Villarreal Primary Care Provider [phone] Encounter Details Date Type Department Care Team (Latest Contact Info) Description 07/16/2025 2:45 PM EST Procedure Visit [facility] [address] [place], [place] [phone] Mariela Villarreal FNP [address] [place] [address] Pap smear for cervical cancer screening (Primary Dx); Vaginal discharge Social History Tobacco Use Types Packs/Day Years Used Date Smoking Tobacco: Former Cigarettes 0.2 18.8 0 08/02/2000 - 06/02/2019 Passive Smoke Exposure: Past Smokeless Tobacco: Former Tobacco Cessation:Counseling Given: Not Answered Depression Answer Date Recorded Patient Health Questionnaire-9 [...] Sign Reading Time Taken Comments Blood Pressure 152/86 07/16/2025 3:07 PM EST Pulse 118 07/16/2025 3:07 PM EST Temperature 36.4 C (97.6 F) 07/16/2025 3:07 PM EST Respiratory Rate 16 07/16/2025 3:07 PM EST Oxygen Saturation 95% 07/16/2025 3:07 PM EST Inhaled Oxygen Concentration - - Weight 88.6 kg (195 lb 6 oz) 07/16/2025 3:07 PM EST Height 165.1 cm (5' 5 ) 07/16/2025 3:07 PM EST Body Mass Index 32.51 07/16/2025 3:07 PM EST documented in this encounter Plan of Treatment Upcoming Encounters Date Type Department Care Team (Late st Contact Info) Description 07/23/2025 10:00 AM EST Office Visit [facility] [address] [place] [address] Mariela Villarreal FNP [address] [place] [address] Scheduled Orders Name Type Priority Associated Diagnoses Order Schedule Pap Smear Pathology and Cytology Routine Pap smear for cervical cancer screening Ordered: 07/16/2025 Bacterial Vaginosis Panel Microbiology Routine Vaginal discharge Ordered: 07/16/2025 Chlamydia/N. Gonorrhoeae RNA, TMA, Vaginal Microbiology Routine Vaginal discharge Ordered: 07/16/2025 documented as of this encounter Visit Diagnoses Diagnosis Pap smear for cervical cancer screening- Primary Screening for malignant neoplasm of the cervix Vaginal discharge Leukorrhea, not specified as infective documented in this encounter Additional Health Concerns Assessment Noted Time PHQ-9 Depression Total Score: 5 06/12/20 11:45 AM EST documented as of this encounter Care Teams Bellmaker Relationship Specialty Start Date End Date Mariela Villarreal FNP [address] [place] [phone] PCP - General Family Medicine 06/11/25 documented as of this encounter
--- OUTSIDE RECORDS SUMMARY | 2025-07-16 22:46 | XMS_ITS | Encounter Summary ---
Author Organization [employer] Address [address] [facility] 7t [place] [address] Care Team Providers Care Berry Picker Name Role Phone Mariela Villarreal Primary Care Provider [phone] Reason for Visit * Reason Onset Date Comments CHARTPREP 07/13/2025 Encounter Details Date Type Department Care Team ([facility] st Contact Info) Description 07/13/2025 Telephone [facility] [address] [place], [place] [phone] Mariela Villarreal FNP [address] [place] [address] CHARTPREP Social History Tobacco Use Types Packs/Day Years [...] encounter Miscellaneous Notes * Telephone Encounter - Nella Garcia MA - 07/13/2025 3:36 PM EST Chart Prep Labs: done Images: not done Referrals: Pulmonology appt 08/31/25 10:00 AM [facility] BI mammogram 09/10/25 10:45 AM [facility] Vaccines due: Covid, Flu, PCV20, and Hep B Screenings: mammogram,family planning, Overdue care gaps: Not applicable documented in this encounter Plan of Treatment Upcoming Encounters Date Type Department Care Team (Late st Contact Info) Description 07/23/2025 10:00 AM EST Office Visit [facility] [address] [place] [address] Mariela Villarreal FNP [address] [place] [address] documented as of this encounter Visit Diagnoses Not on filedocumented in this encounter Additional Health Concerns Assessment Noted Time PHQ-9 Depression Total Score: 5 06/12/20 25 11:45 AM EST documented as of this encounter Care Teams Berry Picker Relationship Specialty Start Date End Date Mariela Villarreal FNP [address] [place] [address] PCP - General Family Medicine 06/11/25 documented as of this encounter
--- OUTSIDE RECORDS SUMMARY | 2025-07-16 22:46 | XMS_ITS | Encounter Summary ---
Author Organization [employer] Address [address] [place] [address] 7t [place] [address] Care Team Providers Care Technical Training Coordinator Name Role Phone Mariela Villarreal Primary Care Provider [phone] Reason for Visit * Reason Comments Med Refill Encounter Details Date Type Department Care Team (Late Contact Info) Description 05/05/2024 Refill [facility] [address] [place] [address] Suleman Quinn MD [address] [place] [address] Non-seasonal allergic rhinitis, unspecified trigger Social History [...] Description 07/23/2025 10:00 AM EST Office Visit [facility] [address] [place] [address] Mariela Villarreal FNP [address] [place] [address] documented as of this encounter Visit Diagnoses Diagnosis Non-seasonal allergic rhinitis, unspecified trigger documented in this encounter Care Teams Technical Training Coordinator Relationship Specialty Start Date End Date Mariela Villarreal FNP [address] [place] [phone] PCP - General Family Medicine 06/11/25 documented as of this encounter
--- OUTSIDE RECORDS SUMMARY | 2025-07-16 22:46 | XMS_ITS | Encounter Summary ---
Author Organization [employer] Address [address] [place] [address] 7[address] [place] [address] Care Team Providers Care Golf Range Attendant Name Role Phone Mariela Villarreal Primary Care Provider [phone] Reason for Visit * Reason Comments Med Refill Encounter Details Date Type Department Care Team (Late st Contact Info) Description 02/04/2025 Refill [facility] [address] [place] [phone] Hannah Tao MD [address] [place] [address] Non-seasonal allergic rhinitis, unspecified trigger Social History [...] Description 07/23/2025 10:00 AM EST Office Visit [facility] [address] [place] [address] Mariela Villarreal FNP [address] [place] [address] documented as of this encounter Visit Diagnoses Diagnosis Non-seasonal allergic rhinitis, unspecified trigger documented in this encounter Care Teams Golf Range Attendant Relationship Specialty Start Date End Date Mariela Villarreal FNP [address] [place] [phone] PCP - General Family Medicine 06/11/25 documented as of this encounter
--- OUTSIDE RECORDS SUMMARY | 2025-07-16 22:46 | XMS_ITS | Encounter Summary ---
Author Organization [employer] Address [address] [facility] 7t [place] [address] Care Team Providers Care Semiconductor Packages Tester Name Role Phone Mariela Villarreal WO[employer]LEE[employer] GRADER Primary Care Provider Encounter Details Date Type Department Care Team (Latest Contact Info) Description 07/16/2025 Travel Social History Tobacco Use Types Packs/Day Years Used Date Smoking Tobacco: Former Cigarettes 0.2 18.8 0 08/02/2000 - 06/02/2019 Passive Smoke Exposure: Past Smokeless Tobacco: Former Depression Answer Date Recorded Patient Health Questionnaire-9 [...] Description 07/23/2025 10:00 AM EST Office Visit [facility] [address] [place] [address] Mariela Villarreal FNP [address] [place] [address] documented as of this encounter Visit Diagnoses Not on filedocumented in this encounter Additional Health Concerns Assessment Noted Time PHQ-9 Depression Total Score: 5 06/12/20 11:45 AM EST documented as of this encounter Care Teams Semiconductor Packages Tester Relationship Specialty Start Date End Date Mariela Villarreal FNP [address] [place] [address] PCP - General Family Medicine 06/11/25 documented as of this encounter
--- OUTSIDE RECORDS SUMMARY | 2025-07-16 22:46 | XMS_ITS | Encounter Summary ---
Author Organization [employer] Address [address] [place] [address] 7t [place] [address] Care Team Providers Care Musical Instruments Assembler Name Role Phone Mariela Villarreal Primary Care Provider [phone] Reason for Visit * Reason Comments Med Refill Encounter Details Date Type Department Care Team (Late Contact Info) Description 06/15/2024 Refill [facility] [address] [place] [address] [phone] Suleman Quinn MD [address] [place] [phone] Non-seasonal allergic rhinitis, unspecified trigger; Moderate persistent [...] 07/23/2025 10:00 AM EST Office Visit [facility] [address] [place] [phone] Mariela Villarreal FNP [address] [place] [address] documented as of this encounter Visit Diagnoses Diagnosis Non-seasonal allergic rhinitis, unspecified trigger Moderate persistent asthma without complication documented in this encounter Care Teams Musical Instruments Assembler Relationship Specialty Start Date End Date Mariela Villarreal FNP [address] [place] [phone] PCP - General Family Medicine 06/11/25 documented as of this encounter
--- OUTSIDE RECORDS SUMMARY | 2025-07-16 22:46 | XMS_ITS | Clinical Summary ---
Author Organization [employer] Address [address] [place] [address] 7[address] [place] [address] Care Team Providers Care Fuel Cell Designer Name Role Phone Mariela Villarreal AUXILIARY EQUIPMENT OPERATOR Primary Care Provider [phone] Allergies Active Allergy Reactions Criticality Noted Date Comments Shellfish Allergy Anaphylaxis High 03/16/2024 Other Reaction(s): Swelling of throat 16-MAY-2016 01:07:16<$> Shellfish Protein-Containing Drug Products 03/16/2024 Medications loratadine (Claritin) 10 MG tabletIndication s:Non-seasonal allergic rhinitis, unspecified trigger TAKE 1 TABLET BY MOUTH ONCE PER DAY. 90 tablet 5 Active EPINEPHrine (Epipen) 0.3 MG/0.3ML injection syringeIndicatio ns:Seafood allergy Inject 0.3 mL (0.3 mg) as directed 1 (one) time for 1 dose. use as directed for allergic reaction and then call 911 0.3 mL 5 Active albuterol (Ventolin HFA) 108 (90 Base) MCG/ACT inhalerIndicatio ns:Moderate persistent asthma without complication Inhale 2 puffs every 6 (six) hours if needed for wheezing or shortness of breath. 18 g 5 026 Active budesonide-formo terol (Symbicort) 160-4.5 MCG/ACT inhalerIndicatio ns:Moderate persistent asthma without complication Inhale 2 puffs in the morning and at bedtime. Rinse mouth with water after use to reduce aftertaste and incidence of candidiasis. Do not swallow. 10.2 g 5 026 Active naproxen (Naprosyn) 500 MG tabletIndication s:Migraine without aura and without status migrainosus, not intractable Take 1 tablet twice daily with food twice daily as needed 60 tablet 5 Active SUMAtriptan (Imitrex) 100 MG tabletIndication s:Migraine without aura and without status migrainosus, not intractable Take 1 tablet (100 mg) by mouth 1 (one) time if needed for migraine. 9 tablet 2 5 Active albuterol (2.5 MG/3ML) 0.083% nebulizer solutionIndicati ons:Moderate persistent asthma without complication Take 3 mL (2.5 mg) by nebulization every 4 (four) hours if needed for wheezing. 75 mL 3 5 026 Active Hospital, Clinic, or Other Facility Administered Medication [...] Encounters Date Type Department Care Team Description 07/16/2025 2:45 PM EST Procedure Visit [address] [address] Mariela Villarreal FNP Pap smear for cervical cancer screening (Primary Dx); Vaginal discharge 07/16/2025 Travel 07/13/[address] [address] Mariela Villarreal FNP CHARTPREP 07/02/[address] [address] Mariela Villarreal FNP July06/12/2025 10:30 AM EST Office Visit [address] [address] [place], Mariela, AUXILIARY EQUIPMENT OPERATOR Well adult exam (Primary Dx); Moderate persistent asthma without complication; Migraine without aura and without status migrainosus, not intractable; Elevated BP without diagnosis of hypertension; Seafood allergy; Anxiety and depression; Class 1 obesity 06/12/2025 Travel 06/11/[address] [facility] [address] [place] [address] Mariela Villarreal FNP Chart Prep 06/05/[address] [facility] [address] [place], [place] [phone] Mariela Villarreal FNP Pre-visit Planning (SDOH negative, Tobacco screening negative. ) 05/21/2025 6:40 PM EDT Office Visit [facility] [address] [place] [address] [phone] Suleman Quinn MD Moderate persistent asthma without complication (Primary Dx) 05/21/2025 Travel 04/30/[address] [phone] Terry Lobato MD 04/17/2025 Telephone [facility] [address] [place], [place] [phone] Terry Lobato MD CHW - New Patient Assistance from Last 3 Months Family History Medical [...] Mass Index 32.51 07/16/2025 3:07 PM EST Plan of Treatment Upcoming Encounters Date Type Department Care Team (Late st Contact Info) Description 07/23/2025 10:00 AM EST Office Visit [facility] [address] [place] [address] Mariela Villarreal FNP [address] [place] [address] Health Maintenance Due Date Last Done Comments Family Planning (PISQ) 1998 HPV Vaccines (1 - 3-dose series) 1998 Hepatitis B Vaccines (1 of 3 - [...] 06/12/2025 SDOH Screening 06/12/2026 06/12/2025 Tobacco Screening 07/16/2026 07/16/2025 DTaP/Tdap/Td Vaccines (4 - T d or Tdap) 02/01/2029 02/01/2019, 05/15/2015, 04/02/2015 Zoster Vaccines (1 of 2) 2033 RSV Patients and Patients Aged 60 years or older (1 - 1-dose 75+ series) 2058 HIV Screening Completed 06/12/2025 Hepatitis C Screening Completed 06/12/2025 HIB Vaccines Aged Out No longer eligi [...] 06/12/2025 12:06 PM EST Well adult exam LIPID PANEL, STANDARD Routine 06/12/2025 12:06 PM EST Well adult exam HIV 1/2 ANTIGEN/ANTIBODY, FOURTH GENERATION W/RFL Routine 06/12/2025 12:06 PM EST Well adult exam CBC WITH AUTO DIFFERENTIAL Routine 06/12/2025 12:06 PM EST Well adult exam HEPATITIS C AB W/REFL TO HCV RNA, QN, PCR Routine 06/12/2025 12:06 PM EST Well adult exam HEPATITIS B SURFACE ANTIGEN, EIA Routine 06/12/2025 12:06 PM EST Well adult exam HEPATITIS B SURFACE ANTIBODY, QUALITATIVE Routine 06/12/2025 12:06 PM EST Well adult exam TSH Routine 06/12/2025 12:06 PM EST Well adult exam HEPATITIS B CORE AB TOTAL Routine 06/12/2025 12:06 PM EST Well adult exam COMPREHENSIVE METABOLIC PANEL Routine 06/12/2025 12:06 PM EST Well adult exam CHLAMYDIA/TRICHOMONAS/ NEISSERIA GONORRHOEAE, PCR, URINE Routine 06/12/2025 12:06 PM EST Well adult exam from Last 3 Months Results * Chlamydia/N. Gonorrhoeae, PCR, Urine (06/12/2025 12:06 PM EST) CT PCR, Urine NOT DETECTED Not Detect. [facility] Comment:A not detected test result does not exclude the possibilityof infection because test results can be affected byimproper specimen collection, concurrent antibiotic therapy,or the number of organisms in the specimen which may bebelow the sensitivity of the test. As with many diagnostictests, results from the Xpert CT/NG assay should beinterpreted in conjunction with other laboratory andclinical data available to the clinician.The Xpert CT/NG assay should not be used for the evaluationof suspected sexual abuse or for other medico-legalindications. Additional testing is recommended in anycircumstance when false positive or false negative resultscould lead to adverse medical, social or psychologicalconsequences. NG PCR, Urine NOT DETECTED Not Detect. [facility] Comment:A not detected test result does not exclude the possibilityof infection because test results can be affected byimproper specimen collection, concurrent antibiotic therapy,or the number of organisms in the specimen which may bebelow the sensitivity of the test. As with many diagnostictests, results from the Xpert CT/NG assay should beinterpreted in conjunction with other laboratory andclinical data available to the clinician.The Xpert CT/NG assay should not be used for the evaluationof suspected sexual abuse or for other medico-legalindications. Additional testing is recommended in anycircumstance when false positive or false negative resultscould lead to adverse medical, social or psychologicalconsequences. Urine (Urine, Random) 06/12/2025 12:06 PM EST 06/12/2025 12:45 PM EST us Mariela Villarreal [facility] URINE ORDERABLES Final Res ult [facility] [address] [place] [phone] * (ABNORMAL) CBC auto differential (06/12/2025 12:06 PM EST) White Blood Count 12.2(H) 4.8 - 10.8 X10*3/uL [facility] Red Blood Count 4.79 4.20 - 5.50 X10*6/uL [facility] Hemoglobin 12.6 12.0 - 16.0 g/dl [facility] Hematocrit 40.9 37.0 - 47.0 % [facility] Mean Corpuscular Volume 85.4 80.0 - 98.0 fL [facility] Mean Corpuscular Hemoglobin 26.3(L) 27.0 - 33.0 pg [facility] Mean Corpuscular HGB Conc 30.8(L) 31.0 - 35.0 g/dl [facility] Red Cell Distribution Width 12.8 11.0 - 16.0 % [facility] Platelet Count 423(H) 160 - 400 X10*3/uL [facility] Mean Platelet Volume 9.4 9.4 - 12.3 fL [facility] Neutrophils Percent Auto 64.0 45 - 73 % [facility] Imm Gran Pct Auto 0.7(H) 0.0 - 0.4 % [facility] Lymphocytes Percent Auto 25.2 20 - 40 % [facility] Monocytes Percent Auto 5.2 2 - 11 % [facility] Eosinophils Percent Auto 3.9 0 - 4 % [facility] Basophils Percent Auto 1.0 0 - 2 % [facility] NRBC Pct Auto 0.0 0.0 - 0.2 /100WBC [facility] Neutrophils Absolute Auto 7.8 2.0 - 8.3 x10*3/uL [facility] Imm Gran Abs Auto 0.09(H) 0.00 - 0.03 X10*3/uL [facility] Lymphocytes Absolute Auto 3.1 1.2 - 4.9 X10*3/uL [facility] Monocytes Absolute Auto 0.6 0.1 - 1.2 X10*3/uL [facility] Eosinophils Absolute Auto 0.5(H) 0.0 - 0.4 X10*3/uL [facility] Basophils Absolute Auto 0.1 0.0 - 0.2 X10*3/uL [facility] NRBC Abs Auto 0.000 0.0 - 0.012 X10*3/uL [facility] Blood Venous blood specimen / Unknown 06/12/2025 12:06 PM EST 06/12/2025 1:34 PM EST us Mariela Villarreal AUXILIARY EQUIPMENT OPERATOR LAB BLOOD ORDERABLES Final Res ult [facility] [address] [place], [place] [phone] * Hepatitis C Antibody with Reflex to HCV, RNA, Quantitative, Real-Time PCR (06/12/2025 12:06 PM EST) Hepatitis C Antibody Nonreactive Nonreactive [facility] Comment:Antibodies to HCV no t detected; does not exclude early acuteHCV infection. Blood Venous blood specimen / Unknown 06/12/2025 12:06 PM EST 06/12/2025 1:34 PM EST [employer] [facility] BLOOD ORDERABLES Final Res ult Performing Organization Address [facility] [address]/ZIP Co de Phone Number [facility] [address] [place] [phone] * Hepatitis B surface antigen, EIA (06/12/2025 12:06 PM EST) Hepatitis B Surface Ag Negative Negative [facility] Blood Venous blood specimen / Unknown 06/12/2025 12:06 PM EST 06/12/2025 1:34 PM EST [facility] BLOOD ORDERABLES Final Res ult Performing Organization Address [facility] [address]/ZIP Co de Phone Number [facility] [address] [place] [phone] * Hepatitis B Core Antibody, Total (06/12/2025 12:06 PM EST) Hepatitis B Core Antibody Nonreactive Nonreactive [facility] Blood Venous blood specimen / Unknown 06/12/2025 12:06 PM EST 06/12/2025 1:34 PM EST [facility] BLOOD ORDERABLES Final Res ult Performing Organization Address [facility] [address]/[facility] Co de Phone Number [facility] [address] [place] [phone] * HIV-1/2 Antigen and Antibodies, Fourth Generation, with Reflexes (06/12/2025 12:06 PM EST) Pathologist [facility] HIV AB/AG Nonreactive Nonreactive [facility] Comment:HIV-1 p24 Ag and/or HIV-1/HIV-2 Ab not detected.A test result that is nonreactive does not exclude thepossibility of exposure to or infection with HIV-1 and/orHIV-2. Nonreactive results in this assay for individualswith prior exposure to HIV-1 and/or HIV-2 may be due toantigen and antibody levels that are below the limit ofdetection of this assay.The [employer] HIV Ag/Ab Combo assay result andsupplemental assay results should be interpreted inconjunction with the patient's clinical presentation,history and other laboratory results. If the results areinconsistent with clinical evidence, additional testing issuggested to confirm the result. Blood Venous blood specimen / Unknown 06/12/2025 12:06 PM EST 06/12/2025 1:34 PM EST [employer] [facility] BLOOD ORDERABLES Final Res ult Performing Organization Address City/[facility] [address]/ZIP Co de Phone Number [facility] [address] [place] [phone] * Hepatitis B Surface Antibody, Qualitative (06/12/2025 12:06 PM EST) [facility] ~Hepatitis B Surface Antibody REACTIVE Nonreactive [facility] Comment:REACTIVE: > 11.99 mI U/mL Blood Venous blood specimen / Unknown 06/12/2025 12:06 PM EST 06/12/2025 1:34 PM EST [employer] [facility] BLOOD ORDERABLES Final Res ult Performing Organization Address City/[facility] [address]/ZIP Co de Phone Number [facility] [address] [place] [phone] * TSH (06/12/2025 12:06 PM EST) Thyroid Stimulating Hormone 1.57 0.32 - 4.0 uIU/mL [facility] Comment:TSH 3rd Generation ( [facility]) Blood Venous blood specimen / Unknown 06/12/2025 12:06 PM EST 06/12/2025 1:34 PM EST [facility] LAB BLOOD ORDERABLES Final Res ult Performing Organization Address City/[facility] [address]/ZIP Co de Phone Number [facility] [address] [place] [phone] * Hemoglobin A1c (06/12/2025 12:06 PM EST) Hemoglobin A1c 5.1 <6.0 % [facility] Comment:Hemoglobin A1C Refer ence Range Adults: 4.8 - 6.0 % Non diabetic: < 6.0 % Goal: < 7.0 %Additional Action Suggested: > 8.0 %Note: Hemoglobin A1c results are invalid for patients with abnormal amounts of HbF. Blood transfusions may impact the HbA1c concentration in the patient sample. Estimated Average Glucose 100 mg/dL [facility] Comment:eAG = Estimated ave rage glucose which is %A1C expressed asaverage glucose, using the formula of the R1M-SqvcdfpVxlpuuo Glucose study (ADAG), Diabetes Care, Vol.31,#8,Mar. 2007 Blood Venous blood specimen / Unknown 06/12/2025 12:06 PM EST 06/12/2025 1:34 PM EST us [facility] LAB BLOOD ORDERABLES Final Res ult Performing Organization Address City/[facility] [address]/ZIP Co de Phone Number [facility] [address] [place] [phone] * Lipid Panel, Standard (06/12/2025 12:06 PM EST) Triglycerides 91 <150 mg/dL [facility] Comment:Desirable Triglyceri de: less than 150 mg/dLBorderline High Triglyceride 150-199 mg/dLHigh Triglyceride: 200-499 mg/dLVery High Triglyceride: greater than or equal to 5OO mg/dL Cholesterol 161 <200 mg/dL [facility] Comment:Desirable Cholestero l: less than 200 mg/dLBorderline High Cholesterol: 200-239 mg/dLHigh Cholesterol: greater than 239 mg/dL LDL Cholesterol Calculated 98 <100 mg/dL [facility] Comment:Desirable LDL: less than 100 mg/dLNear Optimal/Above Optimal LDL: 110- 129 mg/dLBorderline High LDL: 130-159 mg/dLHigh LDL: 160-189 mg/dLVery High LDL: greater than or equal to 190 mg/dL HDL Cholesterol 45 >40 mg/dL [facility] Comment:Desirable HDL: great er than 40 mg/dL Note: This HDL assay may give artificially low results in patients with liver disease. Blood Venous blood specimen / Unknown 06/12/2025 12:06 PM EST 06/12/2025 1:34 PM EST us Mariela Villarreal AUXILIARY EQUIPMENT OPERATOR LAB BLOOD ORDERABLES Final Res ult [facility] [address] [place], [place] [phone] * (ABNORMAL) Comprehensive Metabolic Panel (06/12/2025 12:06 PM EST) Sodium 138 135 - 145 mmol/L [facility] Potassium 3.9 3.3 - 5.1 mmol/L [facility] Chloride 104 96 - 108 mmol/L [facility] Carbon Dioxide 28 22 - 29 mmol/L [facility] Anion Gap 10(L) 12 - 20 [facility] Urea Nitrogen (BUN) 12 9 - 16 mg/dL [facility] Creatinine, Serum 0.61 0.5 - 1.4 mg/dL [facility] Estimated Glomerular Filt Rate >60 [facility] Comment:Chronic Kidney Disea se: Estimated GFR < 60 mL/min/[id number] Kidney Disease: Estimated GFR < 15 mL/min/1.73m2 Glucose 75 60 - 115 mg/dL [facility] Calcium 9.1 8.4 - 10.2 mg/dL [facility] Bilirubin, Total 0.3 0.0 - 1.0 mg/dL [facility] Aspartate Amino Transferase 28 5 - 31 U/L [facility] Alanine Aminotransferase 21 0 - 31 U/L [facility] Total Protein 7.4 6.5 - 8.0 g/dL [facility] Albumin Level 4.4 3.5 - 5.0 g/dL [facility] Alkaline Phosphatase 60 39 - 117 U/L [facility] Blood Venous blood specimen / Unknown 06/12/2025 12:06 PM EST 06/12/2025 1:34 PM EST Mariela REGALADO LAB BLOOD ORDERABLES Final Res ult [facility] [address] [place] [phone] from Last 3 Months Insurance [facility] , [address] [place] [address] Care Teams Fuel Cell Designer Relationship Specialty Start Date End Date Mariela Villarreal FNP [address] [place] [phone] PCP - General Family Medicine 06/11/25
--- OUTSIDE RECORDS SUMMARY | 2025-07-16 22:46 | XMS_ITS | Encounter Summary ---
Author Organization [employer] Address [address] [place] [address] [address]t [place] [address] Care Team Providers Care Director Of Customer Service Name Role Phone Mariela Villarreal Primary Care Provider [phone] Reason for Visit * Reason Comments Med Refill Encounter Details Date Type Department Care Team (Late Contact Info) Description 07/31/2024 Refill [facility] [address] [place] [address] [phone] Suleman Quinn MD [address] [place] [phone] Non-seasonal allergic rhinitis, unspecified trigger; Moderate persistent [...] 10:00 AM EST Office Visit [facility] [address] [place] [phone] Mariela Villarreal FNP [address] [place] [address] documented as of this encounter Visit Diagnoses Diagnosis Non-seasonal allergic rhinitis, unspecified trigger Moderate persistent asthma without complication documented in this encounter Care Teams Director Of Customer Service Relationship Specialty Start Date End Date Mariela Villarreal FNP [address] [place] [phone] PCP - General Family Medicine 06/11/25 documented as of this encounter
--- OUTSIDE RECORDS SUMMARY | 2025-07-16 22:46 | XMS_ITS | Encounter Summary ---
Author Organization [employer] Address [address] [facility] [address]t [place] [address] Care Team Providers Care Strategy Manager Name Role Phone Mariela Villarreal Primary Care Provider [phone] Reason for Visit * Reason Comments Med Refill Encounter Details Date Type Department Care Team (Late st Contact Info) Description 10/31/2024 Refill [facility] [address] [place] [phone] Suleman Quinn MD [address] [place] [phone] Moderate persistent asthma without complication Social History [...] 07/23/2025 10:00 AM EST Office Visit [facility] [address] [place] [phone] Mariela Villarreal FNP [address] [place] [address] documented as of this encounter Visit Diagnoses Diagnosis Moderate persistent asthma without complication documented in this encounter Care Teams Strategy Manager Relationship Specialty Start Date End Date Mariela Villarreal FNP [address] [place] [address] PCP - General Family Medicine 06/11/25 documented as of this encounter
--- OUTSIDE RECORDS SUMMARY | 2025-07-16 22:46 | XMS_ITS | Encounter Summary ---
Author Organization [employer] Address [address] [facility] 7t [place] [address] Care Team Providers Care Continuous Wave Operator Name Role Phone Mariela Villarreal Primary Care Provider [phone] Reason for Visit * Reason Comments Med Refill Encounter Details Date Type Department Care Team (Late Contact Info) Description 04/03/2025 Refill [facility] [address] [place] [phone] Hannah Tao MD [address] [place] [address] Moderate persistent asthma without complication Social History [...] Office Visit [facility] [address] [place] [address] Mariela Villarreal FNP [address] [place] [address] documented as of this encounter Visit Diagnoses Diagnosis Moderate persistent asthma without complication documented in this encounter Care Teams Continuous Wave Operator Relationship Specialty Start Date End Date Mariela Villarreal FNP [address] [place] [phone] PCP - General Family Medicine 06/11/25 documented as of this encounter
[2025-07-17 11:10] LABS: Bacterial Vaginosis PCR NEGATIVE (Negative); Candida Group PCR NOT DETECTED (Not Detect); Candida glab krusei PCR NOT DETECTED (Not Detect); Trichomonas vaginalis PCR NOT DETECTED (Not Detect)
[2025-07-17 12:01] LABS: CT PCR NOT DETECTED (Not Detect.); NG PCR NOT DETECTED (Not Detect.)
== END 2025-07-16 18:32 | disposition home or self-care (01) ==
LOC: HO.HHCLNP 18:31
PROVIDERS: Visit Provider Nurse Practitioner Family
DX: Z20.2 Contact with and (suspected) exposure to infections with a predominantly sexual mode of transmission (principal); N89.8 Other specified noninflammatory disorders of vagina
CPT/HCPCS: 81515; 87491; 87591